=== PATIENT | female | born 2000 ===

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

== ENCOUNTER → 2020-03-19 | Outpatient (CLI) | payer OTHER ==
[2020-03-21 11:10] LABS: CHLAMYDIA TRACHOMATIS, NAA Negative (Negative); NEISSERIA GONORRHOEAE, NAA Negative (Negative)
== END | disposition home or self-care (01) ==
LOC: LAB 12:16 → LAB SHORT 12:16
PROVIDERS: Obstetrics & Gynecology
DX: Z34.01 Encounter for supervision of normal first pregnancy, first trimester (principal); Z3A.09 9 weeks gestation of pregnancy
CPT/HCPCS: 87086; 87491; 87591

== ENCOUNTER → 2020-05-04 | Outpatient (CLI) | payer OTHER ==
[~2020-05-04] MED LIST changes: +IBUP800 PO; +IRON18 MG PO; +PRENATAL TABLE1 EAC2 PO; +Percocet 5-3251 EACH PO
== END | disposition home or self-care (01) ==
LOC: LAB 16:19
DX: Z34.82 Encounter for supervision of other normal pregnancy, second trimester (principal)
CPT/HCPCS: 87086

== ENCOUNTER → 2020-05-15 | Outpatient (CLI) | payer OTHER ==
[~2020-05-15] MED LIST changes: -IBUP800 PO; -IRON18 MG PO; -PRENATAL TABLE1 EAC2 PO; -Percocet 5-3251 EACH PO
[2020-05-15 10:37] LABS: BASOPHILS ABSOLUTE AUTO 0.03 K/mm3 (0.00-0.23); BASOPHILS PERCENT AUTO 0 % (0-2); EOSINOPHILS ABSOLUTE AUTO 0.45 K/mm3 (0.00-0.68); EOSINOPHILS PERCENT AUTO 4 % (0-6); Hematocrit 35.1 % (33.0-51.0); Hemoglobin 12.3 g/dL (11.5-16.0); IMMATURE GRAN ABSOLUTE AUTO 0.07 K/mm3 (0.00-0.10); IMMATURE GRAN PERCENT AUTO 1 % (0-1); LYMPHOCYTES PERCENT AUTO 15 % (21-46); MONOCYTES ABSOLUTE AUTO 0.52 K/mm3 (0.16-1.47); MONOCYTES PERCENT AUTO 4 % (4-13); Mean Corpuscular HGB 30.6 pg (26.0-34.0); Mean Corpuscular Volume 87 fL (80-100); Mean Platelet Volume 9.8 fL (9.1-12.4); NEUTROPHILS ABSOLUTE AUTO 9.93 K/mm3 (1.96-9.15); NEUTROPHILS PERCENT AUTO 76 % (41-73); Platelet Count 265 K/mm3 (150-400); RDW Coefficient Variation 11.9 % (11.7-14.2); RDW Standard Deviation 37.7 fL (35.1-46.3); Red Blood Cell Count 4.02 M/mm3 (3.80-5.20)
[2020-05-15 10:47] LABS: Alanine Aminotransfer (ALT/SGP 57 U/L (12-78); Albumin, Blood 3.5 g/dL (3.4-5.0); Alk Phos 64 U/L (40-126); Anion Gap 10 mmol/L (6-16); Aspartate Aminotrans (AST/SGOT 32 U/L (12-37); Bilirubin, Total 0.3 mg/dL (0.1-1.0); Blood Urea Nitrogen 7 mg/dL (8-21); Bun/Creatinine Ratio 13.2 (12.0-20.0); CO2, Blood 25 mmol/L (21-32); Chloride, Blood 103 mmol/L (98-108); Creatinine, Blood 0.53 mg/dL (0.40-1.00); Globulin, Blood 3.5 g/dL (2.2-4.0); Glomerular Filtration Rate >60 (60-); Glucose, Blood 82 mg/dL (70-99); Potassium, Blood 3.9 mmol/L (3.5-5.5); Sodium, Blood 138 mmol/L (136-145)
== END ==
LOC: LAB EV 10:32 → LAB SHORT 10:32
PROVIDERS: General Practice
DX: Z33.1 Pregnant state, incidental (principal)
CPT/HCPCS: 80053; 85025; 87086

== ENCOUNTER → 2020-06-15 | Outpatient (CLI) | payer OTHER ==
[~2020-06-15] MED LIST changes: +IBUP800 PO; +IRON18 MG PO; +PRENATAL TABLE1 EAC2 PO; +Percocet 5-3251 EACH PO
== END | disposition home or self-care (01) ==
LOC: LAB 15:04 → LAB SHORT 15:04
DX: O28.8 Other abnormal findings on antenatal screening of mother (principal); Z3A.27 27 weeks gestation of pregnancy
CPT/HCPCS: 87086

== ENCOUNTER → 2020-07-13 | Outpatient (CLI) | payer OTHER | END | disposition home or self-care (01) | LOC: LAB SHORT 15:30 → PLD 15:30 | DX: R82.90 Unspecified abnormal findings in urine (principal) | CPT/HCPCS: 87086 ==

== ENCOUNTER 2020-11-03 20:05 | Inpatient (IN) | payer OTHER ==
[~2020-11-03] VITALS: Ht 149.9 cm; Wt 74.1 kg
[~2020-11-03 20:05] MED LIST changes: -IBUP800 PO; -IRON18 MG PO; -PRENATAL TABLE1 EAC2 PO; -Percocet 5-3251 EACH PO
[2020-11-03] MEDS ORDERED: PRENATAL TABLE1 EAC2 PO (20:37)
[2020-11-03] MEDS ORDERED: IRON18 MG PO (20:38)
[2020-11-03 21:49] LABS: BASOPHILS ABSOLUTE AUTO 0.03 K/mm3 (0.00-0.23); BASOPHILS PERCENT AUTO 0 % (0-2); EOSINOPHILS ABSOLUTE AUTO 0.08 K/mm3 (0.00-0.68); EOSINOPHILS PERCENT AUTO 1 % (0-6); Hematocrit 34.7 % (33.0-51.0); Hemoglobin 12.1 g/dL (11.5-16.0); IMMATURE GRAN PERCENT AUTO 1 % (0-1); LYMPHOCYTES ABSOLUTE AUTO 2.39 K/mm3 (0.84-5.20); LYMPHOCYTES PERCENT AUTO 15 % (21-46); MONOCYTES ABSOLUTE AUTO 0.65 K/mm3 (0.16-1.47); MONOCYTES PERCENT AUTO 4 % (4-13); Mean Corpuscular HGB 30.7 pg (26.0-34.0); Mean Corpuscular HGB Conc 34.9 g/dL (31.5-36.5); Mean Corpuscular Volume 88 fL (80-100); Mean Platelet Volume 10.6 fL (9.1-12.4); NEUTROPHILS ABSOLUTE AUTO 12.25 K/mm3 (1.96-9.15); NEUTROPHILS PERCENT AUTO 79 % (41-73); Platelet Count 252 K/mm3 (150-400); RDW Coefficient Variation 12.2 % (11.7-14.2); RDW Standard Deviation 39.4 fL (35.1-46.3); Red Blood Cell Count 3.94 M/mm3 (3.80-5.20)
[2020-11-05 23:07] LABS: PCO2 Cord - Arterial 63.1 mmHg (40-50); PO2 Cord - Arterial < 13 mmHg (16-20); pH Cord - Arterial 7.13 (7.28-7.35)
[2020-11-05 23:09] LABS: PCO2 Cord - Venous 49.9 mmHg (40-50); PO2 Cord - Venous 18.3 mmHg (28-32)
[2020-11-06 06:07] LABS: BASOPHILS ABSOLUTE AUTO 0.03 K/mm3 (0.00-0.23); BASOPHILS PERCENT AUTO 0 % (0-2); EOSINOPHILS PERCENT AUTO 0 % (0-6); Hematocrit 30.3 % (33.0-51.0); Hemoglobin 10.4 g/dL (11.5-16.0); IMMATURE GRAN ABSOLUTE AUTO 0.13 K/mm3 (0.00-0.10); IMMATURE GRAN PERCENT AUTO 1 % (0-1); LYMPHOCYTES ABSOLUTE AUTO 1.38 K/mm3 (0.84-5.20); LYMPHOCYTES PERCENT AUTO 6 % (21-46); MONOCYTES ABSOLUTE AUTO 1.21 K/mm3 (0.16-1.47); MONOCYTES PERCENT AUTO 5 % (4-13); Mean Corpuscular HGB 30.7 pg (26.0-34.0); Mean Corpuscular HGB Conc 34.3 g/dL (31.5-36.5); Mean Corpuscular Volume 89 fL (80-100); Mean Platelet Volume 10.1 fL (9.1-12.4); NEUTROPHILS ABSOLUTE AUTO 20.18 K/mm3 (1.96-9.15); NEUTROPHILS PERCENT AUTO 88 % (41-73); Platelet Count 205 K/mm3 (150-400); RDW Coefficient Variation 12.4 % (11.7-14.2); RDW Standard Deviation 40.6 fL (35.1-46.3); Red Blood Cell Count 3.39 M/mm3 (3.80-5.20); White Blood Cell Count 22.93 K/mm3 (4.00-11.30)
[2020-11-07] MEDS ORDERED: IBUP800 PO (09:36)
[2020-11-07] MEDS ORDERED: Percocet 5-3251 EACH PO (09:36)
--- NOTE | 2020-11-07 14:25 | NUR ---
LATE NOTE ENTRY: DISCHARGE INSTRUCTIONS, WRITTEN AND VERBAL, GIVEN TO PT AND S.O. ANSWERED ALL QUESTIONS AND CONCERNS. FOLLOW UP APPOINTMENT SCHEDULED. POWERGLIDE REMOVED, SITE WNL. PRESCRIPTION HANDED TO PATIENT. PT DISCHARGED HOME, DRIVEN BY S.O.
== END 2020-11-07 13:21 | disposition home or self-care (01) | DRG 788 ==
LOC: OBS 20:05 → BC 20:18
PROVIDERS: ADMIT Obstetrics & Gynecology
PROC: 3E0P7VZ Introduction of Hormone into Female Reproductive, Via Natural or Artificial Opening (ICD-10-PCS; 2020-11-04)
PROC: 00HU33Z Insertion of Infusion Device into Spinal Canal, Percutaneous Approach (ICD-10-PCS; 2020-11-05)
PROC: 3E0R3BZ Introduction of Anesthetic Agent into Spinal Canal, Percutaneous Approach (ICD-10-PCS; 2020-11-05)
PROC: 10D00Z1 Extraction of Products of Conception, Low, Open Approach (ICD-10-PCS; principal; 2020-11-05 22:15)
PROC: 3E0234Z Introduction of Serum, Toxoid and Vaccine into Muscle, Percutaneous Approach (ICD-10-PCS; 2020-11-06)
DX: O48.0 Post-term pregnancy (principal); Z3A.41 41 weeks gestation of pregnancy; Z37.0 Single live birth; O64.0XX0 Obstructed labor due to incomplete rotation of fetal head, not applicable or unspecified; O77.0 Labor and delivery complicated by meconium in amniotic fluid; O26.893 Other specified pregnancy related conditions, third trimester; Z67.11 Type A blood, Rh negative; O76 Abnormality in fetal heart rate and rhythm complicating labor and delivery
CPT/HCPCS: 36415; 51702; 82803; 85025; 85460; 86850; 86870; 86900; 86901; 96372; A9270; C1751; J0171; J0690; J1885; J2001; J2210; J2250; J2370; J2405; J2590; J2765; J2791; J3010; J7120

== ENCOUNTER → 2024-01-29 | Outpatient (CLI) | payer OTHER ==
[~2024-01-29] MED LIST changes: +IBUP800 PO; +IRON18 MG PO; +PRENATAL TABLE1 EAC2 PO; +Percocet 5-3251 EACH PO
[2024-02-07 11:59] LABS: HPV HIGH RISK BY TMA Not Detected; HPV SOURCE Cervical
== END ==
LOC: LAB SHORT 17:57 → LAB 17:57
PROVIDERS: Family Medicine
DX: Z12.4 Encounter for screening for malignant neoplasm of cervix (principal)
CPT/HCPCS: 87624; G0123

== ENCOUNTER 2024-11-24 19:49 | Observation (INO) | payer OTHER ==
[2024-11-24] VITALS (16 sets, daily range): BP systolic 137–161; BP diastolic 80–100
[~2024-11-24] VITALS: Ht 149.9 cm; Wt 84.6 kg
[2024-11-24 21:03] LABS: BASOPHILS ABSOLUTE AUTO 0.02 K/mm3 (0.00-0.23); BASOPHILS PERCENT AUTO 0 % (0-2); EOSINOPHILS ABSOLUTE AUTO 0.06 K/mm3 (0.00-0.68); EOSINOPHILS PERCENT AUTO 1 % (0-6); Hematocrit 32.8 % (33.0-51.0); Hemoglobin 11.4 g/dL (11.5-16.0); IMMATURE GRAN ABSOLUTE AUTO 0.04 K/mm3 (0.00-0.10); IMMATURE GRAN PERCENT AUTO 0 % (0-1); LYMPHOCYTES PERCENT AUTO 22 % (21-46); MONOCYTES ABSOLUTE AUTO 0.53 K/mm3 (0.16-1.47); MONOCYTES PERCENT AUTO 5 % (4-13); Mean Corpuscular HGB Conc 34.8 g/dL (31.5-36.5); Mean Corpuscular Volume 86 fL (80-100); Mean Platelet Volume 10.7 fL (9.1-12.4); NEUTROPHILS ABSOLUTE AUTO 7.24 K/mm3 (1.96-9.15); NEUTROPHILS PERCENT AUTO 72 % (41-73); Platelet Count 190 K/mm3 (150-400); RDW Coefficient Variation 12.5 % (11.7-14.2); White Blood Cell Count 10.09 K/mm3 (4.00-11.30)
[2024-11-24] MEDS ORDERED: LABE100 PO (21:04)
[2024-11-24 21:16] LABS: Creatinine, Urine Random 66.7 mg/dL (27.00-270.00); Protein, Urine Random 18.2 mg/dL (0.0-11.9); Protein/Creat Ratio, Ur Random 0.3
[2024-11-24 21:35] LABS: Albumin, Blood 2.7 g/dL (3.4-5.0); Albumin/Globulin Ratio 0.8 (0.8-1.8); Bilirubin, Total 0.3 mg/dL (0.1-1.0); Bun/Creatinine Ratio 14.6 (12.0-20.0); Calcium, Blood 9.9 mg/dL (8.5-10.1); Creatinine, Blood 0.76 mg/dL (0.40-1.00); Globulin, Blood 3.4 g/dL (2.2-4.0); Total Protein, Blood 6.1 g/dL (6.4-8.2)
[2024-11-24] MEDS ORDERED: NIFEdipine 60 MG TabCR PO ONE (22:10)
[2024-11-24] MEDS ORDERED: NIFEdipine 10 MG Cap PO ONE (22:10)
[2024-11-25] VITALS: BP 129/77
[2024-11-25] MEDS ORDERED: Calcium Carbonate 500 MG Tab Chew PO PRN (01:45)
[2024-11-25 03:13] VITALS: BP 130/80
[2024-11-25] MEDS ORDERED: Acetaminophen 500 MG Tab PO PRN (03:30)
[2024-11-25 05:21] VITALS: BP 154/98
[2024-11-25 06:29] LABS: BASOPHILS ABSOLUTE AUTO 0.03 K/mm3 (0.00-0.23); BASOPHILS PERCENT AUTO 0 % (0-2); EOSINOPHILS ABSOLUTE AUTO 0.03 K/mm3 (0.00-0.68); EOSINOPHILS PERCENT AUTO 0 % (0-6); Hematocrit 36.4 % (33.0-51.0); Hemoglobin 12.6 g/dL (11.5-16.0); IMMATURE GRAN ABSOLUTE AUTO 0.03 K/mm3 (0.00-0.10); IMMATURE GRAN PERCENT AUTO 0 % (0-1); LYMPHOCYTES ABSOLUTE AUTO 1.52 K/mm3 (0.84-5.20); LYMPHOCYTES PERCENT AUTO 16 % (21-46); MONOCYTES ABSOLUTE AUTO 0.37 K/mm3 (0.16-1.47); MONOCYTES PERCENT AUTO 4 % (4-13); Mean Corpuscular HGB 30.4 pg (26.0-34.0); Mean Corpuscular HGB Conc 34.6 g/dL (31.5-36.5); Mean Corpuscular Volume 88 fL (80-100); Mean Platelet Volume 10.9 fL (9.1-12.4); NEUTROPHILS ABSOLUTE AUTO 7.75 K/mm3 (1.96-9.15); NEUTROPHILS PERCENT AUTO 80 % (41-73); Platelet Count 201 K/mm3 (150-400); RDW Coefficient Variation 12.5 % (11.7-14.2); RDW Standard Deviation 39.5 fL (35.1-46.3); Red Blood Cell Count 4.15 M/mm3 (3.80-5.20); White Blood Cell Count 9.73 K/mm3 (4.00-11.30)
[2024-11-25 06:58] LABS: Albumin, Blood 2.9 g/dL (3.4-5.0); Albumin/Globulin Ratio 0.7 (0.8-1.8); Bilirubin, Total 0.4 mg/dL (0.1-1.0); Bun/Creatinine Ratio 13.4 (12.0-20.0); Calcium, Blood 9.2 mg/dL (8.5-10.1); Creatinine, Blood 0.82 mg/dL (0.40-1.00); Globulin, Blood 3.9 g/dL (2.2-4.0); Potassium, Blood 3.9 mmol/L (3.5-5.5); Total Protein, Blood 6.8 g/dL (6.4-8.2)
[2024-11-25 07:53] VITALS: BP 128/83
[2024-11-25 08:37] LABS: Protein, Urine Random 49.8 mg/dL (0.0-11.9); Protein/Creat Ratio, Ur Random 0.3
[2024-11-25 09:45] VITALS: BP 130/89
[2024-11-25] MEDS ORDERED: TraMADol HCl 50 MG Tab PO ONE (09:55)
[2024-11-25] MEDS ORDERED: NIFEdipine 10 MG Cap PO ONE (10:40)
[2024-11-25 10:58] VITALS: BP 138/93
== END 2024-11-25 11:15 | disposition home or self-care (01) ==
LOC: OBS 19:49 → BC 19:55 → OBS 22:35 → BC 22:36 → OBS 22:37 → BC 22:37 → OBS 23:08 → BC 11-25 11:15
PROVIDERS: Obstetrics & Gynecology; ADMIT Advanced Practice Midwife
DX: O26.899 Other specified pregnancy related conditions, unspecified trimester (principal); R03.0 Elevated blood-pressure reading, without diagnosis of hypertension; R10.30 Lower abdominal pain, unspecified; Z3A.00 Weeks of gestation of pregnancy not specified
CPT/HCPCS: 36415; 59025; 80053; 81003; 82570; 84156; 85025; A9270; G0378

== ENCOUNTER 2024-11-26 05:26 | Inpatient (IN) | payer OTHER ==
[~2024-11-26] VITALS: Ht 149.9 cm; Wt 83.6 kg
[2024-11-26] VITALS (20 sets, daily range): BP systolic 104–165; BP diastolic 18–138
[~2024-11-26 05:26] MED LIST changes: +LABE100 PO
[2024-11-26] MEDS ORDERED: Lactated Ringer's 1,000 ML IV SCH ×3 (05:40→09:05)
[2024-11-26] MEDS ORDERED: CeFAZolin Sodium 2,000 MG in NS 100 ML IV SCH (05:40)
[2024-11-26] MEDS ORDERED: Citric Acid/Sodium Citrate 30 ML BTL PO SCH (05:40)
[2024-11-26] MEDS ORDERED: Metoclopramide HCl 5MG / ML 2ML Vial IV SCH (05:40)
[2024-11-26] MEDS ORDERED: Acetaminophen 500 MG Tab PO PRN ×2 (06:25→08:55)
[2024-11-26] MEDS ORDERED: Carboprost Tromethamine 250 MCG/ML 1ML Amp IM PRN (06:25)
[2024-11-26] MEDS ORDERED: OXYTOCIN/RINGER'S LACTATE 500 ML IV PRN (06:25)
[2024-11-26] MEDS ORDERED: Misoprostol 200 MCG Tab BC PRN (06:25)
[2024-11-26] MEDS ORDERED: Ondansetron HCl 2 MG / ML 2ML Vial IV PRN ×2 (06:25→09:00)
[2024-11-26] MEDS ORDERED: Oxytocin 10 Unit / ML Vial IM PRN (06:25)
[2024-11-26] MEDS ORDERED: Methylergonovine Maleate 0.2MG / ML 1ML Amp IM PRN (06:25)
[2024-11-26] MEDS ORDERED: Misoprostol 200 MCG Tab PR PRN ×2 (06:25→08:55)
[2024-11-26] MEDS ORDERED: Calcium Carbonate 500 MG Tab Chew PO PRN (06:30)
[2024-11-26] MEDS ORDERED: Tranexamic Acid 100 ML IV SCH (06:35)
[2024-11-26 06:46] LABS: BASOPHILS ABSOLUTE AUTO 0.02 K/mm3 (0.00-0.23); BASOPHILS PERCENT AUTO 0 % (0-2); EOSINOPHILS ABSOLUTE AUTO 0.06 K/mm3 (0.00-0.68); EOSINOPHILS PERCENT AUTO 1 % (0-6); Hemoglobin 11.5 g/dL (11.5-16.0); IMMATURE GRAN ABSOLUTE AUTO 0.03 K/mm3 (0.00-0.10); IMMATURE GRAN PERCENT AUTO 0 % (0-1); LYMPHOCYTES ABSOLUTE AUTO 2.08 K/mm3 (0.84-5.20); LYMPHOCYTES PERCENT AUTO 26 % (21-46); MONOCYTES ABSOLUTE AUTO 0.43 K/mm3 (0.16-1.47); MONOCYTES PERCENT AUTO 5 % (4-13); Mean Corpuscular HGB 30.6 pg (26.0-34.0); Mean Corpuscular HGB Conc 34.8 g/dL (31.5-36.5); Mean Corpuscular Volume 88 fL (80-100); NEUTROPHILS ABSOLUTE AUTO 5.39 K/mm3 (1.96-9.15); NEUTROPHILS PERCENT AUTO 67 % (41-73); Platelet Count 181 K/mm3 (150-400); RDW Coefficient Variation 12.6 % (11.7-14.2); RDW Standard Deviation 39.8 fL (35.1-46.3); Red Blood Cell Count 3.76 M/mm3 (3.80-5.20); White Blood Cell Count 8.01 K/mm3 (4.00-11.30)
[2024-11-26] MEDS ORDERED: Oxytocin 10 Unit / ML Vial ONE (07:13)
[2024-11-26] MEDS ORDERED: Labetalol HCL 5 MG/ML 4ML Injection (Single Dose) IV ONE (07:20)
[2024-11-26] MEDS ORDERED: Labetalol HCL 5 MG/ML 4ML Injection (Single Dose) ONE (07:25)
--- NOTE | 2024-11-26 08:20 | NUR ---
11/26/24 0820 Becca Grimes 0820 BABY BOY
[2024-11-26 08:46] LABS: PCO2 Cord - Arterial 63.7 mmHg (40-50); PO2 Cord - Arterial < 14.0 mmHg (16-20); pH Cord - Arterial 7.24 (7.28-7.35)
[2024-11-26 08:47] LABS: PCO2 Cord - Venous 44.8 mmHg (40-50); PO2 Cord - Venous 32.4 mmHg (28-32); pH Umbilical Cord - Venous 7.34 (7.26-7.35)
[2024-11-26] MEDS ORDERED: DiphenhydrAMINE HCL 25 MG Cap PO PRN (08:55)
[2024-11-26] MEDS ORDERED: Lanolin Cream TOP PRN (08:55)
[2024-11-26] MEDS ORDERED: Docusate Sodium 100 MG Cap PO SCH (09:00)
[2024-11-26] MEDS ORDERED: Morphine Sulfate 4 MG/1 ML Injection IV PRN (09:00)
[2024-11-26] MEDS ORDERED: Ketorolac Tromethamine 30mg Vial IV SCH (09:00)
[2024-11-26] MEDS ORDERED: OXYTOCIN/RINGER'S LACTATE 500 ML IV SCH (09:00)
[2024-11-26] MEDS ORDERED: OxyCODONE HCL 5 MG TAB PO PRN (09:00)
[2024-11-26] MEDS ORDERED: Magnesium Hydroxide Conc 10 ML UDC PO PRN (09:05)
[2024-11-26] MEDS ORDERED: Simethicone 80 MG Chew PO PRN (09:05)
[2024-11-26] MEDS ORDERED: Methylergonovine Maleate 0.2 MG Tab PO PRN (09:05)
[2024-11-26] MEDS ORDERED: OxyCODONE 5 mg/Acetamin 325 mg TABLET PO PRN (09:05)
[2024-11-26] MEDS ORDERED: FentaNYL Citrate 50 MCG/ML 2 ML Injection ONE (09:20)
[2024-11-26] MEDS ORDERED: FentaNYL Citrate 50 MCG/ML 2 ML Injection IV SCH (10:05)
[2024-11-26] MEDS ORDERED: Labetalol HCL 100 MG TAB PO SCH (21:00)
[2024-11-26] MEDS ORDERED: Rho(D) Immune Globulin 300 MCG / SYR IV ONE (22:05)
[2024-11-27] VITALS (9 sets, daily range): BP systolic 133–159; BP diastolic 74–92
[2024-11-27] MEDS ORDERED: Ibuprofen 400 MG Tab PO SCH (06:00)
[2024-11-27 06:15] LABS: BASOPHILS ABSOLUTE AUTO 0.03 K/mm3 (0.00-0.23); BASOPHILS PERCENT AUTO 0 % (0-2); EOSINOPHILS ABSOLUTE AUTO 0.03 K/mm3 (0.00-0.68); EOSINOPHILS PERCENT AUTO 0 % (0-6); Hematocrit 29.9 % (33.0-51.0); Hemoglobin 10.4 g/dL (11.5-16.0); IMMATURE GRAN PERCENT AUTO 1 % (0-1); LYMPHOCYTES ABSOLUTE AUTO 2.87 K/mm3 (0.84-5.20); LYMPHOCYTES PERCENT AUTO 19 % (21-46); MONOCYTES ABSOLUTE AUTO 1.05 K/mm3 (0.16-1.47); MONOCYTES PERCENT AUTO 7 % (4-13); Mean Corpuscular HGB 30.9 pg (26.0-34.0); Mean Corpuscular HGB Conc 34.8 g/dL (31.5-36.5); Mean Corpuscular Volume 89 fL (80-100); NEUTROPHILS ABSOLUTE AUTO 11.01 K/mm3 (1.96-9.15); NEUTROPHILS PERCENT AUTO 73 % (41-73); Platelet Count 197 K/mm3 (150-400); RDW Coefficient Variation 12.8 % (11.7-14.2); RDW Standard Deviation 41.4 fL (35.1-46.3); Red Blood Cell Count 3.37 M/mm3 (3.80-5.20); White Blood Cell Count 15.09 K/mm3 (4.00-11.30)
[2024-11-27] MEDS ORDERED: Prenatal Vit/FE Fumarate/FA 1 Tab PO SCH (09:00)
[2024-11-27] MEDS ORDERED: Labetalol HCL 100 MG TAB PO ONE (17:05)
--- NOTE | 2024-11-27 19:00 | NUR ---
[facility] charting reviewed
[2024-11-27] MEDS ORDERED: Labetalol HCL 100 MG TAB PO SCH (21:00)
[2024-11-28 04:31] VITALS: BP 125/79
[2024-11-28 07:51] VITALS: BP 142/79
[2024-11-28 09:58] VITALS: BP 143/84
[2024-11-28] MEDS ORDERED: LABE100 PO (10:59)
[2024-11-28] MEDS ORDERED: OXYC5 PO (11:00)
[2024-11-28] MEDS ORDERED: IBUP800 PO (11:01)
== END 2024-11-28 12:55 | disposition home or self-care (01) | DRG 788 ==
LOC: BC 05:26
PROVIDERS: ADMIT Obstetrics & Gynecology
PROC: 4A033R1 Measurement of Arterial Saturation, Peripheral, Percutaneous Approach (ICD-10-PCS; 2024-11-26)
PROC: 10D00Z1 Extraction of Products of Conception, Low, Open Approach (ICD-10-PCS; principal; 2024-11-26 07:30)
DX: O34.211 Maternal care for low transverse scar from previous cesarean delivery (principal); O34.83 Maternal care for other abnormalities of pelvic organs, third trimester; N83.202 Unspecified ovarian cyst, left side; O69.81X0 Labor and delivery complicated by cord around neck, without compression, not applicable or unspecified; Z3A.38 38 weeks gestation of pregnancy
CPT/HCPCS: 36415; 36416; 82803; 82947; 85025; 85460; 86850; 86870; 86900; 86901; 86922; 88305; A9270; J0690; J1885; J2590; J2765; J2791; J3010; J7120